=== PATIENT | male | born 1980 | race African-American/Black ===

== ENCOUNTER 2017-06-13 16:40 | Emergency (ER) | payer OTHER ==
--- NOTE | 2017-06-13 18:10 | ER Document Report ---
HPI - HPI Onset: This afternoon - 1330 Onset/Duration: Sudden Pain Level: 1 Context: 36-year-old male complaining of pressure-like posterior occipital headache since he fell due to stumbling over another player going for jump shot, and hit his head on concrete while playing basketball [facility]. Does not remember falling or getting up to continue play. Friends told him to come in and be checked for concussion. No LOC. No n/v. No neck pain. Associated Symptoms: None Exacerbated by: Denies Relieved by: Denies Similar symptoms previously: No Recently seen / treated by doctor: No - ROS Systems Reviewed and Negative: Yes All other systems reviewed and negative - DERM Skin Color: [place] Past Medical History - General Information source: Patient - Social History Smoking Status: Never Smoker Frequency of alcohol use: None Drug Abuse: None Lives with: Spouse/Significant other Family History: Reviewed & Not Pertinent - Medical History Medical History: Negative Renal/ Medical History: Denies: Hx Peritoneal Dialysis Skin Medical History: Denies Hx MRSA Past Surgical History: Reports: Hx Orthopedic Surgery - right shoulder - Immunizations Immunizations up to date: Yes Hx Diphtheria, Pertussis, Tetanus Vaccination: Yes Vertical Provider Document - CONSTITUTIONAL Agree With Documented VS: Yes Exam Limitations: No Limitations General Appearance: No Apparent Distress - INFECTION CONTROL TRAVEL OUTSIDE OF THE [place] IN LAST 30 DAYS: No - HEENT HEENT: Atraumatic, Normal ENT Exam, Normocephalic, PERRLA - NECK Neck: Supple - Nontender C-spine - RESPIRATORY Respiratory: Breath Sounds Normal, No Respiratory Distress O2 Sat by Pulse Oximetry: 100 - CARDIOVASCULAR Cardiovascular: Regular Rate, Regular Rhythm - MUSCULOSKELETAL/EXTREMETIES Musculoskeletal/Extremeties: ASYA MATSON - NEURO Level of Consciousness: Awake, Alert, Appropriate Motor/Sensory: No Motor Deficit, No Sensory Deficit - DERM Integumentary: Warm, Dry Notes: Gait stable I had him walk up and down the [facility] Course - Re-evaluation Re-evalutation: 06/13/17 19:18 ct negative. home with instructions - Vital Signs Vital signs: Temp Pulse Resp BP Pulse Ox 97.8 F 83 18 124/84 100 06/13/17 16:44 06/13/17 16:44 06/13/17 16:44 06/13/17 16:44 06/13/17 16:44 Discharge - Discharge Clinical Impression: Amnesia Head injury Qualifiers: Encounter type: initial encounter Qualified Code(s): S09.90XA - Unspecified injury of head, initial encounter Concussion Qualifiers: Encounter type: initial encounter Loss of consciousness presence/duration: without LOC Qualified Code(s): S06.0X0A - Concussion without loss of consciousness, initial encounter Condition: Good Disposition: HOME, SELF-CARE Instructions: Acetaminophen, Concussion ([facility]), Headache ([facility]), Head Injury Precautions ([facility]) Additional Instructions: to er if worse see neurologist if symptom persists tylenol for discomfort copy of CT given to you Please complete the patient satisfaction survey if you get one, and return it.. If you do not receive a survey, then you can go to the [facility] website, [email or web address] and place your comments about your very good care. Thank you very much. It was a pleasure being your medical provider today. Forms: Return to Work Referrals: SILKE LAM MD [ACTIVE STAFF] - Follow up as needed
--- NOTE | 2017-06-13 19:18 | RADIOLOGY REPORT (SQ) ---
EXAM DESCRIPTION: CT HEAD WITHOUT COMPLETED DATE/TIME: 06/13/2017 7:09 pm REASON FOR STUDY: head injury COMPARISON: None. TECHNIQUE: Axial images acquired through the brain without intravenous contrast. Images reviewed wi th bone, brain and subdural windows. Images stored on PACS. All CT scanners at this facility use dose modulation, iterative reconstruction, and/or weight based d osing when appropriate to reduce radiation dose to as low as reasonably achievable (ALARA). [facility]: Dose Right [facility]: CareDose [facility]: Dose Right [facility]: Teradose 4D [facility]: Smart [email or web address] RADIATION DOSE: Up-to-date CT equipment and radiation dose reduction techniques were employed. CTDIv ol: 64.6 mGy. DLP: 1292 mGy-cm. mGy. LIMITATIONS: None. FINDINGS: VENTRICLES: Normal size and contour. CEREBRUM: No masses. No hemorrhage. No midline shift. Normal groves/white matter differentiation. N o evidence for acute infarction. CEREBELLUM: No masses. No hemorrhage. No alteration of density. No evidence for acute infarction. EXTRAAXIAL SPACES: No fluid collections. No masses. ORBITS AND GLOBE: No intra- or extraconal masses. Normal contour of globe without masses. CALVARIUM: No fracture. PARANASAL SINUSES: Mucous retention cyst right maxillary sinus. SOFT TISSUES: No mass or hematoma. OTHER: No other significant finding. IMPRESSION: NORMAL BRAIN CT WITHOUT CONTRAST. Mucous retention cyst right maxillary sinus. TECHNICAL DOCUMENTATION: JOB ID: [id number] Quality ID # [id number]: Final reports with documentation of one or more dose reduction techniques (e.g., Au tomated exposure control, adjustment of the mA and/or kV according to patient size, use of iterative reconstruction technique) 2010 [employer]- All Rights Reserved
[2017-06-13 19:27] VITALS: BP 127/74
== END 2017-06-13 19:28 | disposition home or self-care (01) ==
LOC: ER 16:40
DX: S06.0X0A Concussion without loss of consciousness, initial encounter (principal); R41.3 Other amnesia; W03.XXXA Other fall on same level due to collision with another person, initial encounter; Y93.67 Activity, basketball
CPT/HCPCS: 70450; 99284

== ENCOUNTER 2020-06-15 01:53 | Emergency (ER) | payer OTHER ==
[2020-06-15] MEDS ORDERED: LIDOCAINE 1%/EPINEPHRINE INJ 20 ML VIAL INJ ONE (05:26)
[2020-06-15] MEDS ORDERED: IBUPROFEN 800 MG TABLET PO ONE (05:26)
[2020-06-15] MEDS ORDERED: SULFAMETHOXAZOLE/TRIMETHOPRIM 800-160 MG TABLET PO ONE (05:26)
--- NOTE | 2020-06-15 05:28 | ER Document Report ---
ED Skin Rash/Insect Bite/Abscs - General Chief Complaint: Abscess Stated Complaint: HIP PAIN Time Seen by Provider: 06/15/20 05:19 Primary Care Provider: EBENEZER HAMMOND PA [Primary Care Provider] - Follow up as needed Notes: Patient is a 39-year-old male who comes emergency department for chief complaint of tender, swollen, slightly erythematous areas on both his left hip and on his right upper chest. He states that he squeezed open of the one on the right upper chest, it drained significantly throughout the day, he states the area is significantly improved now and is barely bothering him. He was unable to do this with the left hip. He states he felt slight chills earlier this evening as well. He denies vomiting. He denies any other complaints. Patient states he has had 2 separate abscesses in the past and he was told that one on his neck was MRSA. He takes no daily medications, his vaccination is up-to-date, he denies ever using recreational drugs. TRAVEL OUTSIDE OF THE [place] IN LAST 30 DAYS: No - Related Data Allergies/Adverse Reactions: No Known Allergies Allergy (Verified 04/03/13 19:20) Home Medications: bupropion, imitrex, melatonin Past Medical History - General Information source: Patient - Social History Smoking Status: Never Smoker Frequency of alcohol use: None Drug Abuse: None Lives with: Family Family History: Reviewed & Not Pertinent Patient has homicidal ideation: No Renal/ Medical History: Denies: Hx Peritoneal Dialysis Skin Medical History: Denies Hx MRSA Past Surgical History: Reports: Hx Orthopedic Surgery - right shoulder - Immunizations Immunizations up to date: Yes Hx Diphtheria, Pertussis, Tetanus Vaccination: Yes Review of Systems - Review of Systems Constitutional: See HPI EENT: No symptoms reported Cardiovascular: No symptoms reported Respiratory: No symptoms reported Gastrointestinal: No symptoms reported Genitourinary: No symptoms reported Male Genitourinary: No symptoms reported Musculoskeletal: No symptoms reported Skin: See HPI Hematologic/Lymphatic: No symptoms reported Neurological/Psychological: No symptoms reported Physical Exam - Vital signs Vitals: Temp Pulse Resp BP Pulse Ox 100.3 F 104 H 16 140/80 H 98 06/15/20 02:07 06/15/20 02:07 06/15/20 02:07 06/15/20 02:07 08/23/20 02:07 - Notes Notes: GENERAL: Alert, interacts well. No acute distress. HEAD: Normocephalic, atraumatic. EYES: Pupils equal, round, and reactive to light. Extraocular movements intact. ENT: Oral mucosa moist, tongue midline. Oropharynx unremarkable. Airway patent. NECK: Full range of motion. Supple. Trachea midline. No lymphadenopathy. LUNGS: Clear to auscultation bilaterally, no wheezes, rales, or rhonchi. No respiratory distress. Non-tender chest wall. HEART: Regular rate and rhythm. No murmur ABDOMEN: Soft, non-tender. Non-distended. Bowel sounds present in all 4 quadrants. GENITOURINARY: Deferred EXTREMITIES: Moves all 4 extremities spontaneously. No edema, normal radial and dorsalis pedis pulses bilaterally. No cyanosis. BACK: no cervical, thoracic, lumbar midline tenderness. No saddle anesthesia, normal distal neurovascular exam. Moves all extremities in full range of motion. NEUROLOGICAL: Alert and oriented x3. Normal speech. Cranial nerves II through XII grossly intact. Strength 5/5 in all extremities. PSYCH: Normal affect, normal mood. SKIN: Indurated, fluctuant, mildly erythematous area over the left anterior hip/lower abdomen. No surrounding abnormality noted. There is also a resolving area in the right upper chest. Skin exam otherwise unremarkable. Course - Re-evaluation Re-evalutation: Patient with borderline temperature of 100.3, however on evaluation he is energetic, talkative, well-appearing. Patient already drained the abscess in the right chest and this appears to be significantly improved, there is no induration, fluctuance, current drainage, and there is only minimal erythema to the area. Patient does have a left anterior hip area abscess noted however, this was incised and drained. Repeat vitals unremarkable. Patient is not a diabetic. I feel at this time patient can be discharged with antibiotics and return precautions. Discussed antibiotics, care, follow-up, return precautions. Patient states understanding and agreement. Stable and well-appearing at time of discharge. - Vital Signs Vital signs: Temp Pulse Resp BP Pulse Ox 98.7 F 61 14 119/68 100 06/15/20 06:20 06/15/20 06:20 06/15/20 06:20 06/15/20 06:20 06/15/20 06:20 Procedures - Incision and Drainage Left hip/abdomen Type: Single Anesthetic type: 1% Lidocaine w/epi mL's of anesthetic: 6 Blade size: 11 I&D procedure: Chlorprep applied, Shurclens applied, Sterile dressing applied Incision Method: Incision made by scalpel Amount/type of drainage: About 5 cc of purulent drainage Discharge - Discharge Clinical Impression: Abscess Condition: Stable Disposition: HOME, SELF-CARE Additional Instructions: The abscess has been drained, keep absorbent dressing over the area, clean area with soap and water at least daily and redress. Take antibiotics as prescribed to completion. Follow-up with primary care for additional management. Return if you worsen including spiking fevers, spreading redness, severe worsening pain, or any other concerning or worsening symptoms. Prescriptions: Sulfamethoxazole/Trimethoprim [Bactrim Ds Tablet] 2 each PO BID #28 tablet Referrals: EBENEZER HAMMOND PA [Primary Care Provider] - Follow up as needed
[2020-06-15 06:21] VITALS: BP 119/68
== END 2020-06-15 06:21 | disposition home or self-care (01) ==
LOC: ER 01:53
DX: L02.416 Cutaneous abscess of left lower limb (principal)
CPT/HCPCS: 99283; 10060; J3490